=== PATIENT | female | born 1950 | race Caucasian/White ===

== ENCOUNTER 2019-06-23 11:42 | Emergency (ER) | payer MEDICARE ==
--- NOTE | 2019-06-23 12:14 | ED Physician Documentation ---
History of Present Illness - Stated complaint Stated Complaint: LUMPS ON R THIGH - Chief complaint Chief Complaint: General - Additonal information Additional information: This is a 68-year-old female with a history of fibromyalgia, as well as recently stented kidney stone on the R, who presents with some right leg by pain swelling and redness. Patient lives in [place], but she was medi-vac'd down to [facility] for a ureteral stent on the right due to an obstructing stone, she was discharged from the hospital and is now here visiting her sister in law, and today she noticed some redness and firmness on her right anterior thigh. She called her primary care provider who was concerned about blood clot given her recent hospitalization, and she came here for further evaluation. She has never had a blood clot before, is not on any blood thinning medications. She does have a bit of soreness in her right calf, states that she oftentimes is leg soreness due to her fibromyalgia. 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: Other (Ureterl stent) - Present Medications Home Medications: Ambulatory Orders Medication Instructions Recorded Confirmed Apixaban [Eliquis] 5 mg PO BID #42 tab.ds.pk 06/23/19 - Allergies Allergies/Adverse Reactions: Allergies Allergy/AdvReac Type Severity Reaction Status Date / Time NSAIDS (Non-Steroidal AdvReac Cramps Verified 06/23/19 11:51 Anti-Inflamma - Living Situation Living Arrangement: reports: At home - Family History Family history: reports: Non contributory PD ED PE NORMAL - Vitals Vital signs reviewed: Yes - General General: Alert and oriented X 3, No acute distress - Neck Neck: Supple, no meningeal sign - Cardiac Cardiac: RRR - Respiratory Respiratory: No respiratory distress, Clear bilaterally - Abdomen Abdomen: Soft, Non tender, Non distended - Extremities Extremities: Other (Over the right anterior thigh there is a 4 cm long by 0.5 cm area of mild erythema just superficial, and there is some palpable firmness of the veins in this region.Patient's right calf is also somewhat tender, but the legs are symmetric in size, and there is no distal erythema. Full range of motion of all joints of the lower leg, strong 2+ DP and PT pulses bilaterally) - Neuro Neuro: Alert and oriented X 3, No motor deficit Results - Vitals Vitals: Vital Signs - 24 hr 06/23/19 06/23/19 11:47 15:12 Temperature 37.1 C Heart Rate 103 H 87 Respiratory 14 15 Rate Blood Pressure 146/88 H 179/98 H O2 Saturation 100 99 Oxygen O2 Source Room air - Labs Labs: Laboratory Tests 06/23/19 06/23/19 06/23/19 13:00 13:00 13:00 WBC 3.4 L RBC 4.07 L Hgb 12.3 Hct 38.5 MCV 94.6 MCH 30.2 MCHC 31.9 L RDW 12.5 Plt Count 264 MPV 9.6 Neut # (Auto) 1.9 Lymph # (Auto) 0.9 L [place] # (Auto) 0.3 Eos # (Auto) 0.2 Baso # (Auto) 0.0 Absolute Nucleated RBC 0.00 Nucleated RBC % 0.0 PT 12.4 INR 1.1 Sodium 141 Potassium 3.6 Chloride 100 L Carbon Dioxide 31 Anion Gap 10.0 BUN 22 H Creatinine 0.7 Estimated GFR (MDRD) 83 L Glucose 69 L Calcium 9.0 Total Bilirubin 0.4 AST 18 ALT 12 Alkaline Phosphatase 55 Total Protein 7.1 Albumin 3.6 Globulin 3.5 Albumin/Globulin Ratio 1.0 Lipase 31 - Rads (name of study) POCUS Radiology: Other (Over the area of redness very superficial vein in the thigh is noncompressible.) RLE US Radiology: Other (R greater saphenous vein superficial thrombus within 1 cm of the common femoral vein junction) PD MEDICAL DECISION MAKING - ED course Complexity details: considered differential (Cellulitis, DVT, superficial thrombophlebitis) ED course: Patient is well-appearing, her legs are symmetric, she has a superficial area of this on her right thigh. Bedside ultrasound shows a noncompressible superficial vein suggestive of superficial thrombophlebitis. DVT ultrasound was performed and shows thrombophlebitis Of the right greater saphenous vein that extends to within 1 cm from the common femoral vein. CBC shows a slight leukopenia, normal hemoglobin, INR is in the normal, electrolytes unremarkable. I discussed the result with the patient, explained that given the clot's close proximity to the common femoral, I recommend anticoagulation. She was started on apixaban, and the first dose was given here. Instructions on its use as well as the increased risk of bleeding were discussed. I also recommended close follow-up with her primary care provider. I discussed return precautions including severe leg pain, chest pain, shortness of breath, or any other concerning symptoms and patient was discharged home in the care of her friend. Departure - Departure Disposition: Home, Self Care Clinical Impression: Superficial thrombophlebitis of lower extremity Qualifiers: Laterality: right Qualified Code(s): I80.01 - Phlebitis and thrombophlebitis of superficial vessels of right lower extremity Condition: Good Prescriptions: Apixaban [Eliquis] 5 mg PO BID #42 tab.ds.pk Comments: You have a blood clot in one of the superficial veins of your leg, but it is close to the junction of a deep vein your leg, which puts you at risk for having a deep venous thrombosis. Because of this would we would like to start you on a blood thinning medication called Eliquis. You should take 10 mg of this twice a day for the first week, and after that take 5 mg twice a day. Follow-up with your primary care provider to discuss this medication and the length/duration of treatment. If you are developing fever, shortness of breath, or chest pain, or other concerning symptoms please return to the emergency department Discharge Date/Time: 06/23/19 15:13
[2019-06-23 13:08] LABS: BASOPHILS % (AUTO) 0.6 %; EOSINOPHILS # (AUTO) 0.2 10^3/uL (0.0-0.7); EOSINOPHILS % (AUTO) 6.8 %; HGB - HEMOGLOBIN 12.3 g/dL (12.0-16.0); LYMPHOCYTES # (AUTO) 0.9 10^3/uL (1.5-3.5); LYMPHOCYTES % (AUTO) 26.7 %; MEAN CORPUSCULAR HEMOGLOBIN 30.2 pg (27.0-31.0); MEAN CORPUSCULAR HGB CONC 31.9 g/dL (32.0-36.0); MEAN CORPUSCULAR VOLUME 94.6 fL (81.0-99.0); MEAN PLATELET VOLUME 9.6 fL (7.9-10.8); MONOCYTES # (AUTO) 0.3 10^3/uL (0.0-1.0); MONOCYTES % (AUTO) 8.9 %; NEUTROPHILS # (AUTO) 1.9 10^3/uL (1.5-6.6); NEUTROPHILS % (AUTO) 56.7 %; PLT - PLATELET COUNT 264 10^3/uL (130-450); RED BLOOD COUNT 4.07 10^6/uL (4.20-5.40); RED CELL DISTRIBUTION WIDTH 12.5 % (12.0-15.0); WHITE BLOOD COUNT 3.4 x10^3/uL (4.8-10.8)
[2019-06-23 13:20] LABS: INR 1.1 (0.8-1.2); PT - PROTHROMBIN TIME 12.4 secs (9.9-12.6)
[2019-06-23 13:21] LABS: ALBUMIN 3.6 g/dL (3.2-5.5); BILIRUBIN,TOTAL 0.4 mg/dL (0.2-1.0); CREATININE 0.7 mg/dL (0.4-1.0); TOTAL PROTEIN 7.1 g/dL (6.7-8.2)
[2019-06-23] MEDS ORDERED: APIXABAN 5 MG TABLET PO STA (14:49)
[2019-06-23 15:14] VITALS: BP 179/98
--- NOTE | 2019-06-23 15:30 | Ultrasound Report ---
Reason: leg pain, superficial palp cord Procedure Date: 06/23/2019 Accession Number: [id number] / [id number] Procedure: US - Duplex Ext Veins Right CPT Code: Final Report FULL RESULT: EXAM: RIGHT LOWER EXTREMITY VENOUS ULTRASOUND EXAM DATE: 06/23/2019 02:46 PM. CLINICAL HISTORY: Leg pain, superficial palp cord. COMPARISON: None. TECHNIQUE: Real-time sonographic vascular imaging was performed by the music engineer through the lower extremity utilizing both color-flow and Doppler spectral analysis. Multiple solar manufacturer's representative static images were saved for review. FINDINGS: Common Femoral Vein (CFV): Normal. CFV-GSV Junction: Normal. Greater saphenous vein superficial thrombus occlusive and near occlusive. This is located 0.7 cm away from the common femoral vein greater saphenous vein junction. Profunda Femoral Vein (PFV): Normal. Femoral Vein (FV) Prox: Normal. Femoral Vein (FV) Mid: Normal. Femoral Vein (FV) Dist: Normal. Popliteal Vein: Normal. Posterior Tibial Veins: Normal. Peroneal Veins: No evidence for deep venous thrombosis. Limited visualization distally. IMPRESSION: 1. No evidence for deep venous thrombosis. 2. Right greater saphenous vein superficial thrombosis. [facility] Dr. Iggy Doss was notified of these findings by Dr. Geoffrey Poe at approximately 3 PM on 06/23/2019. Dr. Iggy Doss was notified of these findings by Dr. Nuzhat Zamudio at approximately 3:26 PM on 06/23/2019.
== END 2019-06-23 15:13 | disposition home or self-care (01) ==
LOC: ED 11:42
DX: I80.01 Phlebitis and thrombophlebitis of superficial vessels of right lower extremity (principal); D72.819 Decreased white blood cell count, unspecified; Z98.890 Other specified postprocedural states; M79.7 Fibromyalgia
CPT/HCPCS: 36415; 80053; 83690; 85025; 85610; 93971; 99283; 99284; A9270

== ENCOUNTER 2023-06-09 15:10 | Outpatient (CLI) | payer MEDICARE | END 2023-06-09 15:11 | disposition critical access hospital (66) | LOC: EMS 15:10 | DX: S01.81XA Laceration without foreign body of other part of head, initial encounter (principal); M25.511 Pain in right shoulder; M25.512 Pain in left shoulder; W18.30XA Fall on same level, unspecified, initial encounter; Y92.480 Sidewalk as the place of occurrence of the external cause | CPT/HCPCS: A0425; A0429 ==

== ENCOUNTER 2023-06-09 15:18 | Emergency (ER) | payer MEDICARE ==
--- NOTE | 2023-06-09 15:27 | ED Physician Documentation ---
PD HPI Fall - Stated complaint Stated Complaint: GLF - History obtained from History obtained from: Patient, EMS, Other (I saw patient promptly on arrival.) - History of Present Illness Mechanism of injury: Tripped Fall distance: Standing position Timing - onset: Today Injury(ies) location: Face (small lac on forehead that bled for minutes.), Left Uppper Extremity (shoulder) Pain level max: 2 Pain level now: 2 Associated symptoms: No: LOC, AMS Worsens with: Palpation Contributing factors: Anticoagulated Similar symptoms before: Has not had sx before PD PAST MEDICAL HISTORY - Past Medical History : Kidney stones Musculoskeletal: Fibromyalgia - 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: Other (Ureterl stent) - Present Medications Home Medications: Ambulatory Orders Medication Instructions Recorded Confirmed Apixaban [Eliquis] 5 mg PO BID #42 tab.ds.pk 06/23/19 - Allergies Allergies/Adverse Reactions: Allergies Allergy/AdvReac Type Severity Reaction Status Date / Time NSAIDS (Non-Steroidal AdvReac Cramps Verified 06/23/19 11:51 Anti-Inflamma PD ED PE NORMAL - Vitals Vital signs reviewed: Yes - General General: Alert and oriented X 3, No acute distress, Well developed/nourished, Other (arived without cervical collar.) - Neck Neck: Supple, no meningeal sign, Other (tender at lower aspect of cervical spine without deformity. Guarding ROM moderately. ) - Back Back: No CVA TTP, No spinal TTP - Derm Derm: Normal color, Warm and dry - Extremities Extremities: Other (knees not tender. Left shoulder with tenderness along lateral clavicle area. No step off. Humerus not tender with good rotational movement. hurts with abduction.) - Neuro Neuro: Alert and oriented X 3, No motor deficit, No sensory deficit Results - Vitals Vitals: Oxygen O2 Source Room air - Rads (name of study) left shoulder Relevant Findings:: Prelim report reviewed (no fractures), EMP independent interpretation of test head CT Relevant Findings:: Prelim report reviewed (no ICH nor acute findings), EMP independent interpretation of test cervical CT Relevant Findings:: Prelim report reviewed (no fractures; cervical spine degenerative changes, worst at C4-5.), EMP independent interpretation of test Procedures - Laceration (location) forehead Length in cm: 0.5 Wound type: Linear, Into subcut fat, Clean Neurovascular status: Sensory intact Wound preparation: Wound explored, To the base, Other (cleansed with tap water.) Skin layer closure: Dermabond, Steri strips Other: Patient tolerated well, No complications PD Medical Decision Making - ED course Complexity details: reviewed results (no ICH nor cervical fractures. Shoulder xray without fractures. ), considered differential (fall and struck face. On DOAC. no concussive symptms. Has shoulder pain on ROM with tender clavicle/AC area. Normal neuro alertness. Neck with some pain on ROM. to get head and neck CTs. Shoulder xray. Mechanical fall without LOC nor preceding symptoms. ), d/w patient Departure - Departure Disposition: 01 Home, Self Care Clinical Impression: Fall from slip, trip, or stumble, Forehead laceration, Neck strain, Left shoulder strain, Anticoagulant long-term use Condition: Stable Record reviewed to determine appropriate education?: Yes Instructions: ED Laceration Facial Skin Glue Comments: Allow the Steri-Strips and glue to stay clean and dry. This should fall off on their own after several days. At that point the skin should be closed enough to treat it with ointment and Band-Aids. Continue usual medications. Tylenol every 4-6 hours if needed for pains. The CT of your head and neck did not show any signs of bleeding on the brain compartment and no signs of fractures head or neck. You will be sore in the face and neck areas obviously from the fall and injury. Gentle stretching for the neck area. Forms: PCP List Discharge Date/Time: 06/09/23 19:33
[2023-06-09 15:33] VITALS: BP 168/89; O2SAT 100
--- NOTE | 2023-06-09 17:48 | CT Report ---
PROCEDURE: CERVICAL SPINE WO INDICATIONS: fall accidental; head/neck pain TECHNIQUE: Noncontrast 3 mm thick sections acquired from the skull base to the T4 level. Sagittal and coronal r eformats were then constructed. For radiation dose reduction, the following was used: automated exp osure control, adjustment of mA and/or kV according to patient size. COMPARISON: Correlation is made with the accompanying head CT. FINDINGS: Image quality: Excellent. Bones: No fractures or dislocations. Visualized superior ribs are intact. There is at least moderate disc space narrowing seen at C3-C4 and C4-C5 and C6-C7, with moderate disc space narrowing at C5-C6. Posteriorly directed endplate osteophytes are seen, which are worst at C4- C5. Milder degenerative changes are seen elsewhere. Soft tissues: Prevertebral soft tissues are normal in thickness. No paravertebral hematomas. No ap ical pneumothoraces. Atherosclerotic calcification is seen. IMPRESSION: Negative for cervical spine fracture. Cervical spine degenerative changes are seen, which are worst at the C4-C5 level. Reviewed by: Fazal Shanks MD on 06/09/2023 4:46 PM MIRIAM Approved by: Fazal Shanks MD on 06/09/2023 4:46 PM MIRIAM Station ID: [id number]
--- NOTE | 2023-06-09 17:49 | CT Report ---
PROCEDURE: HEAD WO INDICATIONS: fall accidental, head/neck pain TECHNIQUE: Noncontrast 4.5 mm thick angled axial sections acquired from the foramen magnum to the vertex. For r adiation dose reduction, the following was used: automated exposure control, adjustment of mA and/or kV according to patient size. COMPARISON: Correlation is made with the accompanying cervical spine CT. FINDINGS: Image quality: Excellent. CSF spaces: Basal cisterns are patent. No extra-axial fluid collections. Ventricles are normal in size and shape. Brain: No midline shift. No intracranial masses or hemorrhage. Alvarado-white matter interface is norm al. Skull and face: Forehead scalp hematoma with laceration can be seen. Overlying bandaging material is seen. No associated calvarial fracture is seen. Calvarium and visualized facial bones are intact, wi thout suspicious lesions. Sinuses: Visualized sinuses and mastoids are clear. IMPRESSION: Forehead scalp hematoma with laceration, without an associated fracture. No intracranial hemorrhage is seen. No significant intracranial abnormality is seen. Reviewed by: Fazal Shanks MD on 06/09/2023 4:48 PM AKDT Approved by: Fazal Shanks MD on 06/09/2023 4:48 PM AKDT Station ID: [id number]
--- NOTE | 2023-06-09 17:58 | XRAY Report ---
PROCEDURE: Shoulder 3 View LT INDICATIONS: fall, struck shoulder/pain TECHNIQUE: 4 views of the shoulder were acquired. COMPARISON: None. FINDINGS: Bones: No fractures or dislocations. No suspicious bony lesions. Moderate AC joint hypertrophy. Soft tissues: No suspicious soft tissue calcifications. IMPRESSION: No acute bony abnormality. If pain persists with conservative management, consider repeat radiographs in 10-14 days or cross-sectional imaging. Reviewed by: Vipul Flores MD on 06/09/2023 5:56 PM PDT Approved by: Vipul Flores MD on 06/09/2023 5:56 PM PDT Station ID: [id number]
[2023-06-09] MEDS ORDERED: ACETAMINOPHEN 325 MG TABLET PO STA (18:07)
== END 2023-06-09 19:33 | disposition home or self-care (01) ==
LOC: EDUNIT# → ED 15:18
DX: S01.81XA Laceration without foreign body of other part of head, initial encounter (principal); S16.1XXA Strain of muscle, fascia and tendon at neck level, initial encounter; S46.912A Strain of unspecified muscle, fascia and tendon at shoulder and upper arm level, left arm, initial encounter; W01.0XXA Fall on same level from slipping, tripping and stumbling without subsequent striking against object, initial encounter; Z79.01 Long term (current) use of anticoagulants
CPT/HCPCS: 12011; 70450; 72125; 73030; 99283; 99284; A9270